=== PATIENT | male | born 1965 | race Caucasian/White ===

== ENCOUNTER → 2019-11-05 | Outpatient (CLI) | payer OTHER, BC ==
[~2019-11-05] MED LIST: ASPIRIN81 M1 PO; CRESTOR10 MG PO; KLOR-CON 1010 MEQ PO; LOFIBRA160 MG PO; METOPROLOL SR25 MG PO; MICRO-K 1010 MEQ PO; PLAVIX75 MG PO; TENORETIC-25/501 TAB PO
[2019-11-05 08:18] LABS: BUN 16 mg/dl (7-24); CHLORIDE 106 mmol/L (98-107); CHOLESTEROL 122 mg/dL (<200); CREATININE 1.02 mg/dL (0.70-1.30); HDL CHOLESTEROL 31 mg/dl (40-60); LDL CHOLESTEROL 59 mg/dL (9-159); POTASSIUM 3.9 mmol/L (3.5-5.1); SGOT/AST 22 IU/L (3-35); SGPT/ALT 38 U/L (12-78); SODIUM 139 mmol/L (136-145); TRIGLYCERIDES 158 mg/dl (<150); VLDL CHOLESTEROL 32 mg/dL (6-40)
== END | disposition home or self-care (01) ==
LOC: LAB 07:27
PROVIDERS: Internal Medicine Interventional Cardiology
DX: E78.2 Mixed hyperlipidemia (principal)

== ENCOUNTER → 2020-04-16 | Outpatient (CLI) | payer OTHER, BC ==
[~2020-04-16] MED LIST changes: +AVPAK AZITHROM250 M1 PO; +CO Q-1010 M2 PO; +DECADRON6 M1 PO; +LISINOPRIL10 M1 PO; +Lopressor25 MG PO; +OMNICEF300 MG PO; +ROSUVASTATIN CA20 MG PO
== END | disposition home or self-care (01) ==
LOC: COVID19 14:06
PROVIDERS: ATTEND Internal Medicine
DX: U07.1 COVID-19 (principal)

== ENCOUNTER 2020-04-28 17:50 | Observation (INO) | payer OTHER, BC ==
[~2020-04-28] VITALS: Ht 180.3 cm; Wt 141.6 kg
[~2020-04-28 17:50] MED LIST changes: -AVPAK AZITHROM250 M1 PO; -CO Q-1010 M2 PO; -DECADRON6 M1 PO; -LISINOPRIL10 M1 PO; -Lopressor25 MG PO; -OMNICEF300 MG PO; -ROSUVASTATIN CA20 MG PO
[2020-04-28 17:56] VITALS: BP 119/80
[2020-04-28 18:58] LABS: HEMATOCRIT 44.2 % (42.0-52.0); MEAN CELL VOLUME 85.2 fl (80.0-94.0); MEAN CORPUSCULAR HGB 28.5 pg (27.0-31.0); MEAN CORPUSCULAR HGB CONC 33.5 g/dl (33.0-37.0); MEAN PLATELET VOLUME 10.4 fl (9.6-12.3); PLATELET COUNT AUTOMATED 274 10*3/uL (130-400); RED BLOOD COUNT 5.19 10*6/uL (4.50-5.90); RED CELL DISTRI WIDTH 13.4 % (0-14.5)
--- NOTE | 2020-04-28 19:01 | NUR ---
PT WITH INCREASED SOB WITH EXERTION NOTED,PT POSITIONED FOR COMFORT WITH SAFETY PRECAUTIONS INTACT AND CALL LIGHT WITHIN REACH,WILL CONTINUE TO MONITOR.
[2020-04-28 19:18] LABS: ACT PARTIAL THROMBO TIME 32.2 SECONDS (20.0-32.1); ALBUMIN 2.5 gm/dl (3.1-4.5); ALKALINE PHOSPHATASE 44 U/L (45-117); BUN 31 mg/dl (7-24); CHLORIDE 105 mmol/L (98-107); CREATININE 1.32 mg/dL (0.70-1.30); INTERNATIONAL NORM RATIO 1.3 (2.0-3.5); LIPASE 355 U/L (73-393); POTASSIUM 3.7 mmol/L (3.5-5.1); SGOT/AST 173 IU/L (3-35); SGPT/ALT 101 U/L (12-78); SODIUM 135 mmol/L (136-145)
[2020-04-28 19:20] LABS: PLATELET SUFFICIENCY NORMAL (NORMAL); TOTAL CELLS COUNTED 100 #CELLS
[2020-04-28 19:22] LABS: TROPONIN I < 0.015 ng/ml (<0.045)
[2020-04-28] MEDS ORDERED: LISINOPRIL10 M1 PO (19:22)
[2020-04-28] MEDS ORDERED: CO Q-1010 M2 PO (19:23)
[2020-04-28 19:24] VITALS: BP 116/80
--- NOTE | 2020-04-28 20:18 | NUR ---
PT RETURNED FROM CT SCAN @ THIS TIME,NO ADDITIONAL COMPLAINTS VOICED,FATIGUE AND MALAISE REMAINS,SAFETY PRECAUTIONS INTACT AND CALL LIGHT WITHIN REACH.
[2020-04-28 20:25] VITALS: BP 119/66
--- NOTE | 2020-04-28 21:10 | NUR ---
PATIENT ON THE PHONE SPEAKING WITH DR. LUNA
--- NOTE | 2020-04-28 21:23 | NUR ---
REPORT RECEIVED FROM DON CRAFT RN
[2020-04-28 22:55] VITALS: BP 126/37
--- NOTE | 2020-04-28 22:56 | NUR ---
PATIENT UP TO BEDSIDE COMMODE AND BED WAS EXCHANGED FOR AN INPT BED. I DISCUSSED THE BENEFITS OF SELF PRONING HE CAN TOLERATE IT. PATIENT AGREEABLE AND STATES THAT HE PREFERS TO SLEEP ON HIS STOMACH. PATIENT SOB WITH MINIMAL EXERTION, HOWEVER REBOUNDS QUICKLY. ST ON THE CCM, SPO2 94% ON 3 LPM O2. URINAL AND BEDSIDE TABLE PROVIDED.
--- NOTE | 2020-04-28 23:25 | NUR ---
NURSE TO NURSE REPORT GIVEN TO THIS RN.PT RESTING IN BED.INFUSION OF ZITHROMAX CONTINUES.
[2020-04-29] VITALS (9 sets, daily range): BP systolic 98–128; BP diastolic 44–80
--- NOTE | 2020-04-29 00:35 | NUR ---
HEPLOCK IN PLACE.PT RESTING IN BED.DENIES ANY NEEDS AT THIS TIME.LIGHTS DIMMED FOR COMFORT.CALL FLORES IS WITHIN REACH.VITALS REASSESSED.
[2020-04-29 05:55] LABS: ALBUMIN 2.4 gm/dl (3.1-4.5); ALKALINE PHOSPHATASE 47 U/L (45-117); BUN 34 mg/dl (7-24); CHLORIDE 106 mmol/L (98-107); CHOLESTEROL 84 mg/dL (<200); CREATININE 1.14 mg/dL (0.70-1.30); HDL CHOLESTEROL 25 mg/dl (40-60); LDH 654 U/L (87-241); LDL CHOLESTEROL 39 mg/dL (9-159); POTASSIUM 4.5 mmol/L (3.5-5.1); SGOT/AST 159 IU/L (3-35); SGPT/ALT 109 U/L (12-78); SODIUM 135 mmol/L (136-145); TOTAL PROTEIN 7.9 gm/dL (6.4-8.2); TRIGLYCERIDES 102 mg/dl (<150); VLDL CHOLESTEROL 20 mg/dL (6-40)
[2020-04-29 06:02] LABS: FREE T4 1.42 ng/dl (0.76-1.46)
[2020-04-29 06:33] LABS: HEMATOCRIT 44.2 % (42.0-52.0); MEAN CELL VOLUME 86.5 fl (80.0-94.0); MEAN CORPUSCULAR HGB 28.4 pg (27.0-31.0); MEAN CORPUSCULAR HGB CONC 32.8 g/dl (33.0-37.0); MEAN PLATELET VOLUME 11.1 fl (9.6-12.3); PLATELET COUNT AUTOMATED 272 10*3/uL (130-400); RED BLOOD COUNT 5.11 10*6/uL (4.50-5.90); RED CELL DISTRI WIDTH 13.5 % (0-14.5); WHITE BLOOD COUNT 4.4 10*3/uL (4.8-10.8)
--- NOTE | 2020-04-29 07:15 | NUR ---
PT REPORT ACCEPTED FOR CONTINUATION OF CARE. NO VOICED COMPLAINTS. VITALS STABLE. MEAL TRAY TO BE ORDERED.
[2020-04-29 08:41] LABS: PLATELET SUFFICIENCY NORMAL (NORMAL); TOTAL CELLS COUNTED 100 #CELLS
[2020-04-29 09:02] LABS: FERRITIN 1603.5 ng/mL (22.0-322.0); VITAMIN D, 25-HYDROXY 13.5 ng/mL (30-100)
--- NOTE | 2020-04-29 10:56 | NUR ---
MEAL TRAY PROVIDED. WATER AND ICE PROVIDED. BEDSIDE TOILET EMPTIED AND CLEANED. PT HAS NO VOICED COMPLAINTS. HE IS WATCHING TV. MEDS ALSO PROVIDED. VITALS REMAIN STABLE AND HE HAS NO DYSPNEA WHILE RESTING QUIETLY IN BED.
--- NOTE | 2020-04-29 15:25 | NUR ---
NURSE REPORT TO VASYL HENDERSON, FOR CONTINUATION OF CARE.
--- NOTE | 2020-04-29 16:34 | NUR ---
PT RESTING IN BED AT THIS TIME WATCHING TV. 400CC OF URINE EMPTIED OUT OF URINAL. DENIES PAIN OR NEEDS AT THIS TIME. 02 AT 4L VIA NC.
--- NOTE | 2020-04-29 17:24 | NUR ---
CONFIRMED WITH DIETARY THAT A TRAY IS GOING TO COME.
[2020-04-30 00:55] VITALS: BP 118/78
--- NOTE | 2020-04-30 04:15 | NUR ---
PT RESTING IN BED WITH EYES CLOSED, CALL LIGHT WITHIN REACH, NO ACUTE DISTRESS NOTED UPON THIS RN EXITING THE ROOM
[2020-04-30 04:16] VITALS: BP 114/54
[2020-04-30 06:01] VITALS: BP 114/54
--- NOTE | 2020-04-30 06:01 | NUR ---
PT RESTING IN BED WITH EYES OPEN, ICE AND WATER PROVIDED TO PT, CALL LIGHT WITHIN REACH, NO ACUTE DISTRESS NOTED UPON THIS RN EXITING THE ROOM
[2020-04-30 06:20] LABS: ALBUMIN 2.3 gm/dl (3.1-4.5); ALKALINE PHOSPHATASE 53 U/L (45-117); BUN 32 mg/dl (7-24); CHLORIDE 107 mmol/L (98-107); CREATININE 0.89 mg/dL (0.70-1.30); POTASSIUM 4.4 mmol/L (3.5-5.1); SGOT/AST 113 IU/L (3-35); SGPT/ALT 141 U/L (12-78); SODIUM 137 mmol/L (136-145); TOTAL PROTEIN 7.4 gm/dL (6.4-8.2)
[2020-04-30 07:28] LABS: BASO % 0.1 % (0.0-1.0); HEMATOCRIT 41.4 % (42.0-52.0); LYMPH # 0.8 10*3/uL (1.3-4.4); LYMPH % 9.9 % (27.0-41.0); MEAN CELL VOLUME 86.3 fl (80.0-94.0); MEAN CORPUSCULAR HGB 28.8 pg (27.0-31.0); MEAN CORPUSCULAR HGB CONC 33.3 g/dl (33.0-37.0); MEAN PLATELET VOLUME 10.9 fl (9.6-12.3); MONO # 0.4 10*3/uL (0.1-1.0); MONO % 5.3 % (3.0-9.0); NEUT # 6.4 10*3/uL (2.3-7.9); RED CELL DISTRI WIDTH 13.5 % (0-14.5); WHITE BLOOD COUNT 7.6 10*3/uL (4.8-10.8)
[2020-04-30 07:45] LABS: PLATELET COUNT AUTOMATED 375 10*3/uL (130-400)
[2020-04-30 16:00] VITALS: BP 126/74
--- NOTE | 2020-04-30 16:34 | NUR ---
[facility] 55, admitted to , under the services of FRANCOIS Dao DO with a diagnosis of PNEUMONIA. Chief complaint is SOB, WEAKNESS. Patient arrived via bed from ER. Monitor applied. Initial assessment completed. Vital signs taken and recorded. FRANCOIS DAO DO notified of admission to the unit. Orders received. See assessment for past medical history, medications and allergies. Patient and/or family oriented to unit. [facility] visitation policy reviewed. Clothing/patient valuable form completed. [place]
[2020-04-30 20:00] VITALS: BP 112/64
--- NOTE | 2020-04-30 20:42 | NUR ---
24 HR chart check completed.
--- NOTE | 2020-04-30 21:00 | NUR ---
SLEEPING, AWAKENS EASILY. RESPIRATIONS EASY. LUNGS DIMINISHED. PULSE OX 96% 3L. CLAIMS INFREQUENT COUGH. CALL LIGHT WITHIN REACH. NO VOICED COMPLAINTS
[2020-04-30] MEDS ORDERED: ROSUVASTATIN CA20 MG PO (22:04)
[2020-04-30] MEDS ORDERED: Lopressor25 MG PO (22:06)
--- NOTE | 2020-04-30 22:45 | NUR ---
PATIENT QUESTIONING HOME MEDS. MEDS REVIEWED WITH PATIENT AND UPDATED IN MED REC. DR ENCINAS CONTACTED AND INFORMED OF CHANGES. MEDS UPDATED
[2020-05-01] VITALS: BP 125/64
--- NOTE | 2020-05-01 | NUR ---
SLEEPING. NO DISTRESS NOTED. RESPIRATIONS EASY. VSS. PULSE OX 97% 3L. CALL LIGHT WITHIN REACH
--- NOTE | 2020-05-01 04:00 | NUR ---
SLEEPING, NO DISTRESS NOTED. RESPIRATIONS EASY. CALL LIGHT WITHIN REACH.
--- NOTE | 2020-05-01 06:00 | NUR ---
SLEPT THROUGHOUT NIGHT WITH NO DISTRESS NOTED. RESPIRATIONS EASY. O2 IN USE AT 3L. CALL LIGHT WITHIN REACH. NO VOICED COMPLAINTS THIS SHIFT
[2020-05-01 08:00] VITALS: BP 136/73
--- NOTE | 2020-05-01 09:00 | NUR ---
Hoe Runner in to talk to patient. Patient states lives at home with . There are no steps in the home. Physician: bryan Pharmacy: [facility]: none Patient's level of ADLs: INDEPENDENT Patient has working utilities: all working DME: none Follow-up physician's appointment after d/c: will be made by hospitalist nurse director upon discharge Does patient want to access PORTAL?: no Discharge plan patient lives at home with , he is independent in adls and ambulation, he states he will return home when discharged. denies any home needs at this time. MIKE BALL
--- NOTE | 2020-05-01 10:56 | NUR ---
PULSE OX ON R/A AT REST 93%, HEART RATE 77, B/P 131/72 PT. AMBULATED IN ROOM DUE TO ISOLATION. PULSE OX ON R/A WITH AMBULATION 88%, HEART RATE 101. PT PLACED ON 2L O2 SITTING AT BEDSIDE. O2 88% ON 2 AT REST. O2 INCREASED TO 3L, SAT INCREASING TO 94 AT REST. PT. AMBULATED IN ROOM ON 3L, SAT MAINTAINING 93%, HEART RATE 97. PT. RESTING AT BEDSIDE WITH 3L O2, SAT 92%, HEART RATE 87, B/P 123/74. RN AND DR. NEAL NOTIFIED OF RESULTS.
[2020-05-01 12:00] VITALS: BP 124/32
--- NOTE | 2020-05-01 14:31 | NUR ---
case management received a message that patient has qualified for home oxygen, script received, contacted [facility], spoke to [facility], [facility] will deliver a portable tank to the hospital for patient to be discharged home and set up concentrator at home, attempted to contact patient and no answer, contacted patient's regarding discharge and home oxygen, denies any other home needs at this time
[2020-05-01] MEDS ORDERED: DECADRON6 M1 PO (16:26)
--- NOTE | 2020-05-01 16:42 | NUR ---
PHYSICAL THERAPY PT evaluation attempted. Per nursing, patient is discharging home this date. Will continue to follow if discharge plans change. Thank you. Lourdes Mcelroy,PT,DPT
--- NOTE | 2020-05-01 17:00 | NUR ---
[facility] Discharge instructions reviewed with patient/family. Patient receptive and verbalizes understanding. Follow-up care arranged. Written instructions given to patient/family. [place]
[2020-05-01] MEDS ORDERED: AVPAK AZITHROM250 M1 PO (18:16)
[2020-05-01] MEDS ORDERED: OMNICEF300 MG PO (18:16)
== END 2020-05-01 17:00 | disposition home or self-care (01) ==
LOC: ED 17:50 → EDHOLD 21:20 → 4E 04-30 14:55
PROVIDERS: Hospitalist; Internal Medicine; Nurse Practitioner Family; ADMIT Student in an Organized Health Care Education/Training Program; ATTEND Student in an Organized Health Care Education/Training Program
DX: U07.1 COVID-19 (principal); J12.89 Other viral pneumonia; J96.00 Acute respiratory failure, unspecified whether with hypoxia or hypercapnia; N17.0 Acute kidney failure with tubular necrosis; R53.1 Weakness; R74.01 Elevation of levels of liver transaminase levels; I10 Essential (primary) hypertension; E78.5 Hyperlipidemia, unspecified; E87.1 Hypo-osmolality and hyponatremia; E55.9 Vitamin D deficiency, unspecified

== ENCOUNTER → 2020-05-29 | Outpatient (CLI) | payer OTHER, BC ==
[~2020-05-29] MED LIST changes: +AVPAK AZITHROM250 M1 PO; +CO Q-1010 M2 PO; +DECADRON6 M1 PO; +LISINOPRIL10 M1 PO; +Lopressor25 MG PO; +OMNICEF300 MG PO; +ROSUVASTATIN CA20 MG PO
[2020-05-29 10:58] LABS: BASO % 0.4 % (0.0-1.0); EOS # 0.4 10*3/uL (0.0-0.4); EOS % 6.9 % (1.0-4.0); LYMPH # 1.8 10*3/uL (1.3-4.4); LYMPH % 35.1 % (27.0-41.0); MEAN CELL VOLUME 89.1 fl (80.0-94.0); MEAN CORPUSCULAR HGB 29.1 pg (27.0-31.0); MEAN CORPUSCULAR HGB CONC 32.7 g/dl (33.0-37.0); MEAN PLATELET VOLUME 9.3 fl (9.6-12.3); MONO # 0.5 10*3/uL (0.1-1.0); MONO % 8.8 % (3.0-9.0); NEUT # 2.5 10*3/uL (2.3-7.9); PLATELET COUNT AUTOMATED 196 10*3/uL (130-400); RED CELL DISTRI WIDTH 14.8 % (0-14.5); WHITE BLOOD COUNT 5.2 10*3/uL (4.8-10.8)
[2020-05-29 11:37] LABS: ALBUMIN 3.1 gm/dl (3.1-4.5); ALKALINE PHOSPHATASE 49 U/L (45-117); BUN 10 mg/dl (7-24); CHLORIDE 108 mmol/L (98-107); CREATININE 0.79 mg/dL (0.70-1.30); POTASSIUM 4.1 mmol/L (3.5-5.1); SGOT/AST 23 IU/L (3-35); SGPT/ALT 33 U/L (12-78); SODIUM 140 mmol/L (136-145); TOTAL PROTEIN 7.3 gm/dL (6.4-8.2)
== END | disposition home or self-care (01) ==
LOC: LAB 10:27
PROVIDERS: ATTEND Nurse Practitioner Primary Care
DX: J18.0 Bronchopneumonia, unspecified organism (principal); U07.1 COVID-19

== ENCOUNTER → 2020-06-09 | Outpatient (CLI) | payer OTHER, BC | END | disposition home or self-care (01) | LOC: CT 15:50 | PROVIDERS: ATTEND Nurse Practitioner Primary Care | DX: J47.9 Bronchiectasis, uncomplicated (principal); J18.9 Pneumonia, unspecified organism; I25.10 Atherosclerotic heart disease of native coronary artery without angina pectoris; J84.10 Pulmonary fibrosis, unspecified; U07.1 COVID-19 ==

== ENCOUNTER → 2020-07-27 | Outpatient (CLI) | payer OTHER, BC | END | disposition home or self-care (01) | LOC: US 14:19 | PROVIDERS: ATTEND Nurse Practitioner Primary Care | DX: I73.9 Peripheral vascular disease, unspecified (principal) ==

== ENCOUNTER → 2020-08-23 | Outpatient (CLI) | payer OTHER, BC | END | disposition home or self-care (01) | LOC: ORTHO 00:45 | PROVIDERS: ATTEND Orthopaedic Surgery | DX: M17.0 Bilateral primary osteoarthritis of knee (principal) ==

== ENCOUNTER → 2020-10-23 | Outpatient (CLI) | payer OTHER, BC | END | disposition home or self-care (01) | LOC: CT 10:00 | PROVIDERS: ATTEND Internal Medicine Critical Care Medicine | DX: J98.4 Other disorders of lung (principal); J12.82 Pneumonia due to coronavirus disease 2019; J84.10 Pulmonary fibrosis, unspecified; R06.83 Snoring; J30.89 Other allergic rhinitis; G47.33 Obstructive sleep apnea (adult) (pediatric); Z68.42 Body mass index [BMI] 45.0-49.9, adult; Z87.891 Personal history of nicotine dependence ==

== ENCOUNTER → 2021-06-06 | Outpatient (CLI) | payer BC ==
[2021-06-06 12:12] LABS: ALBUMIN 3.6 gm/dl (3.1-4.5); ALKALINE PHOSPHATASE 67 U/L (45-117); BUN 12 mg/dl (7-24); CHLORIDE 106 mmol/L (98-107); CREATININE 1.07 mg/dL (0.70-1.30); POTASSIUM 4.5 mmol/L (3.5-5.1); SGOT/AST 16 IU/L (3-35); SGPT/ALT 30 U/L (12-78); SODIUM 137 mmol/L (136-145); TOTAL PROTEIN 7.8 gm/dL (6.4-8.2)
== END | disposition home or self-care (01) ==
LOC: LAB 11:27
PROVIDERS: ATTEND Nurse Practitioner Primary Care
DX: U07.1 COVID-19 (principal); Z68.42 Body mass index [BMI] 45.0-49.9, adult

== ENCOUNTER → 2021-08-31 | Outpatient (CLI) | payer BC | END | disposition home or self-care (01) | LOC: RESCLI 01:52 | PROVIDERS: ATTEND Internal Medicine | DX: E78.2 Mixed hyperlipidemia (principal); E11.9 Type 2 diabetes mellitus without complications; I10 Essential (primary) hypertension; J30.2 Other seasonal allergic rhinitis; E55.9 Vitamin D deficiency, unspecified; Z88.8 Allergy status to other drugs, medicaments and biological substances; Z79.82 Long term (current) use of aspirin; Z79.899 Other long term (current) drug therapy ==

== ENCOUNTER → 2021-11-13 | Outpatient (CLI) | payer BC | LOC: CT 02:50 | PROVIDERS: ATTEND Internal Medicine Critical Care Medicine | DX: J84.10 Pulmonary fibrosis, unspecified (principal); I25.10 Atherosclerotic heart disease of native coronary artery without angina pectoris; K76.0 Fatty (change of) liver, not elsewhere classified ==

== ENCOUNTER → 2021-12-13 | Outpatient (CLI) | payer BC | END | disposition home or self-care (01) | LOC: CARD 00:27 | PROVIDERS: ATTEND Internal Medicine Interventional Cardiology | DX: I08.0 Rheumatic disorders of both mitral and aortic valves (principal); E66.01 Morbid (severe) obesity due to excess calories; Z68.42 Body mass index [BMI] 45.0-49.9, adult; E78.5 Hyperlipidemia, unspecified; I10 Essential (primary) hypertension; R60.0 Localized edema ==

== ENCOUNTER → 2022-09-20 | Outpatient (CLI) | payer BC | END | disposition home or self-care (01) | LOC: RESCLI 15:05 | PROVIDERS: ATTEND Internal Medicine | DX: E11.9 Type 2 diabetes mellitus without complications (principal); E78.2 Mixed hyperlipidemia; J30.2 Other seasonal allergic rhinitis; E55.9 Vitamin D deficiency, unspecified; I10 Essential (primary) hypertension; Z88.8 Allergy status to other drugs, medicaments and biological substances; Z98.890 Other specified postprocedural states; Z79.899 Other long term (current) drug therapy ==

== ENCOUNTER → 2023-03-25 | Outpatient (CLI) | payer BC | END | disposition home or self-care (01) | LOC: RAD 09:19 | PROVIDERS: ATTEND Internal Medicine | DX: M79.641 Pain in right hand (principal); M25.441 Effusion, right hand; W54.0XXA Bitten by dog, initial encounter ==

== ENCOUNTER → 2024-06-23 | Outpatient (CLI) | payer BC ==
[2024-06-23 08:50] LABS: BASO % 0.4 % (0.0-1.0); EOS # 0.1 10*3/uL (0.0-0.4); HEMATOCRIT 40.2 % (42.0-52.0); MEAN CELL VOLUME 88.2 fl (80.0-94.0); MEAN CORPUSCULAR HGB 29.2 pg (27.0-31.0); MEAN CORPUSCULAR HGB CONC 33.1 g/dl (33.0-37.0); MEAN PLATELET VOLUME 10.1 fl (9.6-12.3); MONO # 0.6 10*3/uL (0.1-1.0); MONO % 7.8 % (3.0-9.0); NEUT # 4.9 10*3/uL (2.3-7.9); NEUT % 69.6 % (47.0-73.0); PLATELET COUNT AUTOMATED 285 10*3/uL (130-400); RED BLOOD COUNT 4.56 10*6/uL (4.50-5.90); RED CELL DISTRI WIDTH 13.8 % (0-14.5); WHITE BLOOD COUNT 7.1 10*3/uL (4.8-10.8)
[2024-06-23 09:26] LABS: ALKALINE PHOSPHATASE 56 U/L (46-116); BUN 10 mg/dl (9-23); CHLORIDE 104 mmol/L (98-107); SGPT/ALT 16 U/L (5-49); TOTAL PROTEIN 7.1 gm/dL (6.0-8.0)
== END | disposition home or self-care (01) ==
LOC: LAB 07:40
PROVIDERS: ATTEND Student in an Organized Health Care Education/Training Program
DX: K91.2 Postsurgical malabsorption, not elsewhere classified (principal)

== ENCOUNTER → 2024-09-29 | Outpatient (CLI) | payer BC ==
[2024-09-29 07:37] LABS: BASO % 0.3 % (0.0-1.0); EOS # 0.2 10*3/uL (0.0-0.4); HEMATOCRIT 45.2 % (42.0-52.0); MEAN CELL VOLUME 87.4 fl (80.0-94.0); MEAN CORPUSCULAR HGB 28.8 pg (27.0-31.0); MONO # 0.5 10*3/uL (0.1-1.0); MONO % 7.7 % (3.0-9.0); NEUT % 59.9 % (47.0-73.0); PLATELET COUNT AUTOMATED 218 10*3/uL (130-400); RED BLOOD COUNT 5.17 10*6/uL (4.50-5.90); RED CELL DISTRI WIDTH 14.6 % (0-14.5); WHITE BLOOD COUNT 6.7 10*3/uL (4.8-10.8)
[2024-09-29 07:58] LABS: ALKALINE PHOSPHATASE 58 U/L (46-116); BUN 10 mg/dl (9-23); CHLORIDE 103 mmol/L (98-107); POTASSIUM 4.6 mmol/L (3.4-5.1); SGPT/ALT 15 U/L (5-49); TOTAL PROTEIN 7.2 gm/dL (6.0-8.0)
== END | disposition home or self-care (01) ==
LOC: LAB 07:04
PROVIDERS: ATTEND Student in an Organized Health Care Education/Training Program
DX: K91.2 Postsurgical malabsorption, not elsewhere classified (principal)

== ENCOUNTER → 2024-12-11 | Outpatient (CLI) | payer BC ==
[2024-12-11 08:41] LABS: BASO # 0.0 10*3/uL (0.0-0.1); BASO % 0.3 % (0.0-1.0); BILIRUBIN Negative (Negative); BLOOD Negative (Negative); CLARITY Cloudy (Clear); COLOR Yellow (Yellow); EOS # 0.2 10*3/uL (0.0-0.4); EOS % 2.5 % (1.0-4.0); KETONE Trace (Negative); LEUKO ESTERASE Trace (Negative); MEAN CELL VOLUME 88.1 fl (80.0-94.0); MEAN CORPUSCULAR HGB 29.4 pg (27.0-31.0); MEAN PLATELET VOLUME 10.7 fl (9.6-12.3); MONO # 0.5 10*3/uL (0.1-1.0); MONO % 7.9 % (3.0-9.0); NEUT # 3.4 10*3/uL (2.3-7.9); NEUT % 54.7 % (47.0-73.0); NITRITE Negative (Negative); NUCLEATED RED BLOOD CELL 0.0 % (0.0-0.0); NUCLEATED RED BLOOD CELL 0.0 10*3/uL (0.0-0.0); PH 5.5 (4.5-8.0); PLATELET COUNT AUTOMATED 197 10*3/uL (130-400); RED CELL DISTRI WIDTH 14.5 % (0-14.5); SPECIFIC GRAVITY 1.025 (1.001-1.030); UROBILINOGEN 1.0 E.U./dl (0.0-1.0)
[2024-12-11 08:52] LABS: ACT PARTIAL THROMBO TIME 28.7 SECONDS (20.0-32.1)
[2024-12-11 09:19] LABS: BUN 10 mg/dl (9-23); SGPT/ALT 14 U/L (5-49)
[2024-12-11 09:28] LABS: BACTERIA TRACE; MUCOUS 1+
== END ==
LOC: LAB 08:15 → US 10:00
PROVIDERS: ATTEND Orthopaedic Surgery
DX: Z01.818 Encounter for other preprocedural examination (principal); I70.202 Unspecified atherosclerosis of native arteries of extremities, left leg